=== PATIENT | male | born 1990 | race Hispanic/Latino ===

== ENCOUNTER 2017-07-06 22:25 | Emergency (ER) | payer BC ==
[~2017-07-06] VITALS: Ht 167.6 cm; Wt 59.0 kg
[2017-07-07 01:01] VITALS: BP 128/74
== END 2017-07-07 01:00 | disposition home or self-care (01) ==
LOC: FSED 22:25
DX: K29.00 Acute gastritis without bleeding (principal); K21.9 Gastro-esophageal reflux disease without esophagitis
CPT/HCPCS: 99282